=== PATIENT | male | born 1995 | race Caucasian/White ===

== ENCOUNTER 2024-03-07 11:06 | Outpatient (AMB) | payer MEDICARE, SELFPAY ==
--- NOTE | 2024-03-07 11:19 | A.OFFPC_ITS ---
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 Rehab Specialist Required: No Allergies amoxicillin Adverse Reaction (Intermediate, Verified 03/07/24 11:37) Hives Medication List - Last Reconciled 03/07/24 by Danyell Bueno CNP albuterol sulfate 90 mcg/actuation 2 puffs inhalation Q4-6H PRN Tobacco use date assessed: 03/07/24 Dental Screening Dental Screen Date: 03/07/24 Did you have a dental visit in the last 12 months?: No Did you have a dental problem in the last 6 months where you did not have access to dental care?: No Was dental information given to patient?: Yes HPI HPI Comments History of Present Illness Details New patient Prior PCP:?[facility] Last office visit/CPE: About 5 years Acute issue(s): Asthma -He is on albuterol inhaler, 2 puffs Q4- 6H PRN, however, he ran out of the inhaler about a month ago Anxiety -Reports h/o psychotropic medications, i ncluding clonidine, buspirone, and seroquel. He has has not been taking psychotropic medication for the past 2 years. He relates his anxiety symptoms to alcohol use disorder. He notes h/o alcohol rehab in 2019 and twice in 2021. He denies depression. He denies SI/HI Alcohol use disorder -He drinks 400ml of vodka and 1 beer on weekdays and doubled on Fridays and Saturdays; he has been drinking heavily, on and off, for the past 10 years. He is willing to be referred to addiction medicine He notes that is diet is generally unhealthy. He has not been exercising in the past 1 month. He has difficulty falling asleep; he sleeps an average of 4-5 hours nightly PMHx: Anxiety, alcohol use disorder, asthma, ADHD (treated at childhood to college) SurgHx: None FHx: Dad: Substance use disorder SocHx: Smokes 3 cigarettes daily and has been smoking for the past 11 years. History of vaping, quit 2 years ago. History of cocaine use. Smokes 1-2 hits of cannabis once every 3 months Last eye exam was several years ago Last tetanus vaccine was more than 10 years ago, and wants to be vaccinated He has not been vaccinated for the flu vaccine this season and requests the flu vaccine [facility] Medical History (Updated 03/07/24 @ 12:35 by Danyell Bueno CNP) Alcoholism Anxiety Eczema Arthritis Asthma Family History (Updated 03/07/24 @ 11:42 by Krysten Nance MA) Paternal Uncle Alcohol abuse Father Substance abuse Mother Asthma Social History Housing: Apartment Patient Tobacco Use Status: Current everyday Tobacco user Cigarettes Per Day: 3 e-Cigarette/Vaping Use: Never Used Second Hand Smoke Exposure: No service: No Current occupational status: employed Current occupation: [employer] Current occupational exposures/hazards: Yes Cognitive needs: No Hearing needs: No Vision needs: No Questionnaire PHQ-9 Over the last 2 weeks, how often have you been bothered by any of the following problems? 1. Little interest or pleasure in doing things: several days 2. Feeling down, depressed, or hopeless: several days 3. Trouble falling or staying asleep, or sleeping too much: more than half the days 4. Feeling tired or having little energy: more than half the days 5. Poor appetite or overeating: more than half the days 6. Feeling bad about yourself - or that you are a failure or have let yourself or your family down: not at all 7. Trouble concentrating on things, such as reading the newspaper or watching television: more than half the days 8. Moving or speaking so slowly that other people could have noticed. Or the opposite - being so fidgety or restless that you have been moving around a lot more than usual: several days 9. Thoughts that you would be better off or of hurting yourself in some way: not at all Total score: 11 Depression Screening Interpretation: Positive Depression Screening Done: Yes 57389 - PHQ-9 Billing: Yes Source: Developed by Drs. Abundio Jolly, Gianna Guzmán, Sy Ayala and colleagues, with an educational delaney from [employer]. Thrive Questionnaire Date Thrive assessed: 03/07/24 I am a: Patient What is your living situation today?: I have a steady place to live Within the past 12 months, did the food you bought not last and you didn't have the money to get more?: Never true Within the past 12 months, did you worry whether your food would run out before you got money to buy more?: Never true Do you have trouble paying for medicines?: No Do you have trouble getting transportation to medical appointments?: No Do you have trouble paying your heating and electricity bill?: No Do you have trouble taking care of your child, family member or friend?: No Do you have trouble with day-to-day activities such as bathing, preparing meals, shopping, managing finances, etc.?: Yes Are you currently unemployed and looking for a job?: No Are you interested in more education?: I choose not to answer this question Please select the resources that you would like help with: None Currently or been in a relationship where the following occur: No concerns reported THRIVE Score: 0 AUDIT C Alcohol Use Questionnaire (AUDIT-C) 1. How often do you have a drink containing alcohol?: 4 or more times a week 2. How many drinks containing alcohol do you have on a typical day when you are drinking?: 7 to 9 3. How often do you have six or more drinks on one occasion?: Daily or almost daily Total Score: 11 Score Reviewed/Action Taken: Yes TONY-7 AMB Questionnaire TONY-7 Date TONY - 7 assessed: 03/07/24 Feeling nervous, anxious, or on edge: 2 = More than half the days Not being able to stop or control worryin = More than half the days Worrying too much about different things: 2 = More than half the days Trouble relaxin = More than half the days Being so restless that it is hard to sit still: 2 = More than half the days Becoming easily annoyed or irritable: 0 = Not at all Feeling afraid as if something awful might happen: 2 = More than half the days Total TONY-7 score (0-4 normal; 5-9 mild; 10-14 moderate; 15-21 severe): 12 Source: Developed by Drs. Abundio Jolly, Gianna Guzmán, Sy Ayala and colleagues, with an educational delaney from [employer]. TONY-7 Assessment Billing TONY-7 Assessment Tool: TONY-7 Assessment 66871 ACT Questionnaire In the past 4 weeks, how much of the time did your asthma keep you from getting as much done at work, school or at home?: All of the time During the past 4 weeks, how often have you had shortness of breath?: More than once a day During the past 4 weeks, how often did your asthma symptoms wake you up at night or earlier than usual in the morning?: Not at all During the past 4 weeks, how often have you had to use your rescue inhaler or nebulizer medication?: Once a week or less How would you rate your asthma control during the past 4 weeks?: Somewhat controlled ACT Interpretation: Positive Score: 14 Review of Systems Const Details: Denies chills, Denies fatigue, Denies fever(s), Denies headache(s) and Denies weakness HEENT Denies change in vision, Denies dizziness, Denies headache(s), Denies hearing loss, Denies nasal congestion, Denies sinus pain, Denies sinus pressure and Denies sore throat Card Denies chest pain, Denies lightheadedness, Denies dyspnea and Denies other (palpitations) Resp Denies cough, Denies dyspnea and Denies wheezing GI Denies abdominal pain, Denies melena, Denies hematochezia, Denies change in bowel habits, Denies dyspepsia and Denies nausea Denies hematuria and Denies dysuria Musc Denies abnormal gait, Denies myalgias, Denies arthralgias, Denies numbness and Denies tingling Skin/Breast Denies rash, Denies unusual bruising and Denies wounds Neuro Denies abnormal gait, Denies dizziness, Denies headache(s), Denies memory loss, Denies numbness, Denies Sensory deficit (Neuro), Denies tingling and Denies weakness Psych Denies anxiety, Denies depression and Denies memory loss Endo Denies cold intolerance, Denies fatigue, Denies heat intolerance, Denies polydipsia and Denies polyuria Michael/Lymph Denies easy bleeding and Denies easy bruising Aller/Immun Denies wheezing Physical exam (Primary Care) Vital Signs: Last Vital Signs Temp 98.1 F 03/07/24 11:30 Pulse 96 03/07/24 11:30 Resp 16 03/07/24 11:30 BP 136/82 03/07/24 11:30 Pulse Ox 98 03/07/24 11:30 Oxygen Delivery Method Room Air 03/07/24 11:30 BMI result Body Mass Index 30.7 Tobacco/Smoking Status: Tobacco use Status Tobacco use date assessed 03/07/24 03/07/24 11:29 Patient Tobacco Use Status Current everyday Tobacco 03/07/24 11:29 e-Cigarette/Vaping Use Never Used 03/07/24 11:29 PHQ-9: PHQ-9 Score PHQ-9: Total score 11 03/07/24 12:39 Depression Screening Interpretation: Positive Thrive Assessment: Date of Thrive Assessment Date Thrive assessed 03/07/24 03/07/24 11:29 Currently or been in a relationship where the following occur: No concerns reported Const Other: General: no acute distress, well developed, alert and awake Nutritional Appearance: well nourished Orientation/consciousness: patient oriented x3 HENMT Head: Yes normocephalic and Yes atraumatic Ears: hearing grossly normal bilaterally and TM's normal bilaterally General nose exam: Normal external nose present and Normal nares present Mouth: Normal oral and palatal mucosa present and moist mucous membranes Teeth and gingiva: dentition normal Throat: Yes oropharynx normal Eyes Pupils: Equal, round and reactive pupils present and Pupil accommodation reflex normal EOM: EOMs intact bilaterally Neck Neck: Yes normal visual inspection, Yes no lymphadenopathy and Yes trachea midline Thyroid: Thyroid normal Carotids: no bruits Lymphatic: no lymphadenopathy noted Chest Chest palpation & inspection: normal inspection of the chest Resp Effort & Inspection: normal respiratory effort Auscultation: clear to auscultation bilaterally Cardio Rate: regular rate Rhythm: regular rhythm Heart sounds: S1 normal heart sound present, S2 normal heart sound present, no gallops, no murmurs and no rubs Bruits: no abdominal aortic bruits and no carotid bruits GI Palpation (GI): No Abdominal aortic bruit present, Soft to palpation, nontender, No hepatosplenomegaly present and No Rebound tenderness present Auscultation: normal bowel sounds General: Yes no CVA tenderness Back/Spine/Pelvis Back: no CVA tenderness Cervical Spine: cervical ROM normal and No Cervical spine tenderness Thoracic/Lumbar Spine: thoraco-lumbar ROM normal, No pain with thoraco-lumbar ROM, No thoracic spinal tenderness and No lumbar spinal tenderness Skin General: warm and dry. Normal skin color. Normal skin turgor Lesions: no lesions Rashes: no rashes Trauma: no lacerations or abrasions Wounds: no wounds Nails: normal Neuro General: patient oriented x3, gait normal and CN's II-XI intact bilaterally Cranial nerves: Yes Equal, round and reactive pupils present Cognition (Neuro): normal cognition Gait exam (Neuro): Normal gait present Motor exam (neuro): 5/5 motor strength present throughout Sensory Exam: No Sensory deficit (Neuro) Deep tendon reflexes (DTR's): Right patellar reflex intensity grade: 2+ and Left patellar reflex intensity grade: 2+ Extrem General: Yes normal to inspection, No edema and No calf tenderness Psych Appearance: grossly normal Affect: normal affect Attitude: cooperative Thought process: Normal thought process present Office Procedures Flu Questionnaire Does the patient have a severe egg allergy?: No Does the patient have severe life threatening allergies?: No Does the patient have a fever or illness today?: No Has the patient ever had Guillain-[place] Syndrome?: No Has the patient ever had any past reaction to a flu shot?: No Immunizations Fluarix Triv 0413-1380 (PF) 45 mcg (15 mcg x 3)/0.5 mL IM syringe Performing Provider: Danyell Bueno CNP Performing Location: [facility] Administered by: Luna Khan RN on 03/07/24 12:40 Dose Route Admin Location Dispensed Lot Number Expiration Date [facility] Order Detailer 0.5 mL IM Left Deltoid 0.5 mL [id number] 11/19/24 11188-663-31 [employer]/LBRINE VIS Given Date VIS Provided VIS Publication Date 03/07/24 Single Vaccine 20 Eligibility Eligibility Date Funding Source Not [facility] Eligible 03/07/24 Private Administration Comments: Patient received both the flu shot and the TDaP vaccine today in the left deltoid, flu shot below the TDaP. Boostrix Tdap 2.5 Lf unit-8 mcg-5 Lf/0.5 mL intramuscular syringe Performing Provider: Danyell Bueno CNP Performing Location: [facility] Administered by: Luna Khan RN on 03/07/24 12:40 Dose Route Admin Location Dispensed Lot Number Expiration Date [place] Order Detailer 0.5 mL IM Left Deltoid 0.5 mL [id number] 02/17/25 [id number] [employer]/LBRINE VIS Given Date VIS Provided VIS Publication Date 03/07/24 Single Vaccine 20 Eligibility Eligibility Date Funding Source Not [facility] Eligible 03/07/24 Private Administration Comments: Patient received both the flu shot and the TDaP vaccine today in the left deltoid, flu shot below the TDaP. Coding Level of Care Code New Pt Level 4 (90949) New Pt Prev Care 18-39yr(30235 Diagnoses Normal physical examination, routine Z00.00 Asthma J45.909 Alcohol use disorder F10.90 Anxiety F41.9 Sleep disturbance G47.9 Smoking 1/2 pack a day or less F17.210 Eye exam, routine Z01.00 Vaccine for tetanus toxoid Z23 Flu vaccine need Z23 Laboratory tests ordered as part of a complete physical exam (CPE) Z00.00 Additional Codes TONY-7 Assessment Billing - TONY-7 Assessment Tool: TONY-7 Assessment 24959 ([id number]) Asthma Control Questionnaire - ACT Interpretation: Positive ([id number]) Assessment & Plan Assessment & Plan (1) Normal physical examination, routine: Code(s): Z00.00 - Encounter for general adult medical examination without abnormal findings Category: Medical Plan: No significant functional limitation noted Healthy diet and routine exercise encouraged Encouraged to schedule an appointment with a dentist for routine dental care Advised to get fasting lab work done and follow-up in a month for asthma and labs review Return sooner with symptoms or concerns Verbalized understanding and agreed with the treatment plan (2) Asthma: Code(s): J45.909 - Unspecified asthma, uncomplicated Category: Medical Plan: ACT score is 14, poorly control asthma He ran out of his albuterol inhaler about a month ago Will refill albuterol inhaler. Advised to use as prescribed Smoking cessation encouraged Follow-up in 1 month or sooner with worsening or new symptoms Verbalized understanding and agreed with the treatment plan (3) Alcohol use disorder: Code(s): F10.90 - Alcohol use, unspecified, uncomplicated Category: Medical Plan: He drinks significant amount of alcohol daily and has been drinking heavily, on and off, for the past 10 years. He has been in rehab for alcohol intake 3 times Instructed on the health risks and complications of excessive alcohol intake and encouraged to cut back on drinking Referred to [facility] addiction medicine Verbalized understanding and agreed with the plan (4) Anxiety: Code(s): F41.9 - Anxiety disorder, unspecified Category: Medical Plan: Reports history of anxiety which he attributes to alcohol use disorder. Sleep is also an issue; he has trouble maintaining sleep. He was on psychotropic medications until 2 years ago. He continues to drink significant amount of alcohol. He has not been exercising for the past 1 month PHQ-9 and TONY-7 scores revealed moderate depression and anxiety respectively Will not start psychotropic medications at this time due to adverse reactions with significant alcohol consumption Healthy diet and routine exercise encouraged Referred to [facility] addiction medicine Follow-up with worsening or new symptoms Verbalized understanding and agreed with the treatment plan (5) Sleep disturbance: Code(s): G47.9 - Sleep disorder, unspecified Category: Medical Plan: Plan as above (6) Smoking 1/2 pack a day or less: Code(s): F17.210 - Nicotine dependence, cigarettes, uncomplicated Category: Social Hx Plan: He smokes 3 cigarettes daily and has been smoking for the past 11 years Instructed on the health risks and complications of cigarette smoking and smok ing cessation encouraged Declines medication treatment at this time He may inform his PCP as needed for treatment Verbalized understanding and agreed with the plan (7) Eye exam, routine: Code(s): Z01.00 - Encounter for examination of eyes and vision without abnormal findings Category: Medical Plan: His last eye exam was several years ago Referred to Ophthalmology for routine eye exam (8) Vaccine for tetanus toxoid: Code(s): Z23 - Encounter for immunization Category: Medical Plan: His last tetanus vaccine was over 10 years ago Tdap administered today by our nurse (9) Flu vaccine need: Code(s): Z23 - Encounter for immunization Category: Medical Plan: He has not been vaccinated for the flu this season Flu vaccine administered today by our nurse (10) Laboratory tests ordered as part of a complete physical exam (CPE): Code(s): Z00.00 - Encounter for general adult medical examination without abnormal findings Category: Medical Plan: Fasting labs ordered as part of a complete physical exam. Advised to fast for at least 10 hours before getting labs drawn. May drink water Verbalized understanding and agreed with treatment plan. Orders: Orders Comprehensive Chancellor. Panel Fast Today Z00.00 - Encounter for general adult medical examination without abnormal findings Lipid Panel Today Z00.00 - Encounter for general adult medical examination without abnormal findings Influenza [id number] Immunization Today Z23 - Encounter for immunization Complete Blood Count Auto Diff Today Z00.00 - Encounter for general adult medical examination without abnormal findings TSH reflex Free T4 Today Z00.00 - Encounter for general adult medical examination without abnormal findings UA CC w/rflx Micro + Cult Today Z00.00 - Encounter for general adult medical examination without abnormal findings TDaP Immunization Today Z23 - Encounter for immunization Referrals Addiction Medicine Referral F10.90 - Alcohol use, unspecified, uncomplicated Ophthalmology Referral Z01.00 - Encounter for examination of eyes and vision without abnormal findings Medications: New albuterol sulfate 90 mcg/actuation 2 puffs inhalation Q4-6H PRN 8.5 grams 3RF s hortness of breath or wheezing
[2024-03-07 11:30] VITALS: BP 136/82; PULSE 96; RESP 16; TEMP 36.7; O2SAT 98; BMI 30.7
== END 2024-03-07 12:35 | disposition home or self-care (01) ==
PROVIDERS: Visit Provider Nurse Practitioner Family
DX: Z00.00 Encounter for general adult medical examination without abnormal findings (principal); J45.909 Unspecified asthma, uncomplicated; F10.90 Alcohol use, unspecified, uncomplicated; F41.9 Anxiety disorder, unspecified; G47.9 Sleep disorder, unspecified; F17.210 Nicotine dependence, cigarettes, uncomplicated

== ENCOUNTER → 2024-03-07 11:06 | Outpatient (BNVA) | payer OTHER, SELFPAY | PROVIDERS: Visit Provider Nurse Practitioner Family | DX: Z00.00 Encounter for general adult medical examination without abnormal findings (principal); J45.909 Unspecified asthma, uncomplicated; F10.90 Alcohol use, unspecified, uncomplicated; F41.9 Anxiety disorder, unspecified; G47.9 Sleep disorder, unspecified; F17.210 Nicotine dependence, cigarettes, uncomplicated; Z23 Encounter for immunization | CPT/HCPCS: 90471; 90472; 90656; 90715; 96127; 96160; 99202; 99385 ==

== ENCOUNTER 2024-04-03 15:32 | Outpatient (REF) | payer OTHER, SELFPAY ==
[2024-04-03 18:02] LABS: MANUAL DIFF FLAG NO
[2024-04-03 18:08] LABS: Basophils Absolute Auto 0.1 X10*3/uL (0.0-0.2); Basophils Percent Auto 1.2 % (0-2); Eosinophils Absolute Auto 0.3 X10*3/uL (0.0-0.4); Eosinophils Percent Auto 5.6 % (0-4); Hematocrit 41.7 % (42.0-52.0); Hemoglobin 14.6 g/dl (14.0-18.0); Imm Gran Abs Auto 0.04 X10*3/uL (0.00-0.03); Imm Gran Pct Auto 0.7 % (0.0-0.4); Lymphocytes Absolute Auto 1.6 X10*3/uL (1.2-4.9); Lymphocytes Percent Auto 28.5 % (20-40); Mean Corpuscular Hemoglobin 33.2 pg (27.0-33.0); Mean Corpuscular Volume 94.8 fL (80.0-98.0); Mean Platelet Volume 9.8 fL (9.4-12.4); Monocytes Absolute Auto 0.4 X10*3/uL (0.1-1.2); Monocytes Percent Auto 6.1 % (2-11); Neutrophils Absolute Auto 3.3 x10*3/uL (2.0-8.3); Neutrophils Percent Auto 57.9 % (45-73); Platelet Count 257 X10*3/uL (160-400); Red Cell Distribution Width 11.4 % (11.0-16.0); White Blood Count 5.7 X10*3/uL (4.8-10.8)
[2024-04-03 18:11] LABS: Appearance Urine Clear; Color Urine Yellow; Glucose Urine UA Negative (Negative); Leukocyte Esterase Urine Negative (Negative); Nitrite Urine Negative (Negative); Urine Blood Negative (Negative); Urine Ketones Negative (Negative); Urine Protein Trace mg/dL (Neg-Trace)
[2024-04-03 18:24] LABS: Alanine Aminotransferase 361 U/L (0-40); Albumin Level 4.6 g/dL (3.5-5.0); Alkaline Phosphatase 90 U/L (39-117); Anion Gap 15 (12-20); Aspartate Amino Transferase 145 U/L (5-37); Bilirubin Total 0.9 mg/dL (0.0-1.0); Blood Urea Nitrogen 9 mg/dL (9-16); Calcium 10.2 mg/dL (8.4-10.2); Carbon Dioxide 30 mmol/L (22-29); Chloride 94 mmol/L (96-108); Cholesterol 314 mg/dL (<200); Estimated Glomerular Filt Rate > 60; Glucose Fasting 99 mg/dL (60-99); HDL Cholesterol 35 mg/dL (>40); Potassium 3.8 mmol/L (3.3-5.1); Sodium 135 mmol/L (135-145); Total Protein 8.2 g/dL (6.5-8.0); Triglycerides 602 mg/dL (<150)
[2024-04-03 19:12] LABS: Free T4 (Free Thyroxine) 1.06 ng/dL (0.71-1.85)
[2024-04-06 14:28] LABS: LDL Cholesterol Direct 197 mg/dL (<100)
== END 2024-04-03 15:33 | disposition home or self-care (01) ==
LOC: HO.WFDLDS 15:32
PROVIDERS: Visit Provider Nurse Practitioner Family
DX: Z00.00 Encounter for general adult medical examination without abnormal findings (principal); E78.5 Hyperlipidemia, unspecified
CPT/HCPCS: 36415; 80053; 80061; 81003; 83721; 84439; 84443; 85025

== ENCOUNTER 2024-05-04 15:36 | Outpatient (AMB) | payer OTHER, SELFPAY ==
--- NOTE | 2024-05-04 14:14 | MHC.PC.OV ---
Intake Visit Reasons: REVIEW LABS Intake Note: patient here for telehealth for lab review [employer] Supervisor Required: No Allergies amoxicillin Adverse Reaction (Intermediate, Verified 05/04/24 16:19) Hives Medication List - Last Reconciled 05/04/24 by Danyell Bueno CNP albuterol sulfate 90 mcg/actuation 2 puffs inhalation Q4-6H PRN Tobacco use date assessed: 05/04/24 Dental Screening Dental Screen Date: 03/07/24 HPI HPI Comments History of Present Illness Details 28-year-old male presents for telehealth visit for review of recent lab results. He has been consuming significant amount of meat, cheese, and processed foods. He has not been exercising recently. He offers no complaints and denies acute symptoms at this time. [facility] Medical History (Updated 05/04/24 @ 14:57 by Danyell Bueno CNP) Alcoholism Anxiety Eczema Arthritis Asthma Family History (Updated 03/07/24 @ 11:42 by Krysten Nance MA) Paternal Uncle Alcohol abuse Father Substance abuse Mother Asthma Social History Housing: Apartment Patient Tobacco Use Status: Current everyday Tobacco user Cigarettes Per Day: 3 e-Cigarette/Vaping Use: Never Used Second Hand Smoke Exposure: No service: No Current occupational status: employed Current occupation: [employer] Current occupational exposures/hazards: Yes Cognitive needs: No Hearing needs: No Vision needs: No Questionnaire Thrive Questionnaire Date Thrive assessed: 03/07/24 TONY-7 AMB Questionnaire TONY-7 Date TONY - 7 assessed: 03/07/24 Source: Developed by Drs. Abundio Jolly, Gianna Guzmán, Sy Ayala and colleagues, with an educational delaney from [employer]. Review of Systems Const Details: Const Denies chills, Denies fatigue, Denies fever(s), Denies headache(s) and Denies weakness ENT Denies dizziness and Denies headache(s) Card Denies chest pain, Denies lightheadedness, Denies dyspnea and Denies other (Palpitations) Resp Denies cough, Denies dyspnea, Denies wheezing and Denies other ( shortness of breath) GI Denies abdominal pain, Denies melena, Denies hematochezia, Denies change in bowel habits, Denies dyspepsia and Denies nausea Denies hematuria and Denies dysuria Musc Denies abnormal gait, Denies myalgias, Denies arthralgias, Denies numbness and Denies tingling Skin/Breast Denies rash, Denies unusual bruising and Denies wounds Neuro Denies abnormal gait, Denies dizziness, Denies headache(s), Denies memory loss, Denies numbness, Denies Sensory deficit (Neuro), Denies tingling and Denies weakness Psych Denies anxiety, Denies depression, Denies memory loss Endo Denies cold intolerance, Denies fatigue, Denies heat intolerance, Denies polydipsia and Denies polyuria Aller/Immun Denies wheezing Physical exam (Primary Care) Tobacco/Smoking Status: Tobacco use Status Tobacco use date assessed 05/04/24 05/04/24 14:17 Patient Tobacco Use Status Current everyday Tobacco 05/04/24 14:17 e-Cigarette/Vaping Use Never Used 05/04/24 14:17 Thrive Assessment: Date of Thrive Assessment Date Thrive assessed 03/07/24 05/04/24 14:17 Const Other: Telehealth visit. No physical exam. Telehealth Telehealth Telehealth Platform: Telephone Location of provider rendering services: practice address Location of patient: address on file Patient Identification confirmed using: Name, : Yes Telehealth method: voice only Patient verbally consented to treatment: Yes Patient verbally consented to billing insurance company: Yes Patient informed of any privacy concerns related to visit: Yes Coding Level of Care Code Tele Est Pt Level 3 (39812) Diagnoses Hyperlipidemia E78.5 Transaminitis R74.01 Subclinical hypothyroidism E03.8 Time Spent (min) 20 Assessment & Plan Assessment & Plan (1) Hyperlipidemia: Code(s): E78.5 - Hyperlipidemia, unspecified Category: Medical Plan: Recent triglycerides, total cholesterol, and LDL direct levels elevated, 602, 314, and 197 respectively; HDL level is low, 35. May be related to diet or alcohol consumption. Advised to limit foods high in saturated fat and avoid foods high in trans fat. Routine exercise encouraged. Instructed on impact of heavy alcohol consumption on his weight and encouraged to limit alcohol intake to no more than 1 drink daily. He was referred to [facility] addiction medicine for alcohol use disorder and awaiting to be contacted for an appointment. Encouraged to get his voicemail set up on his cell phone so they will be able to leave a message for his appointment. Advised to fast for 10-12 hours, may drink water, and get repeat lipid panel blood work done 2-3 days before his next visit. Follow-up for telehealth visit in 2 months for labs review or sooner with symptoms or concerns. Verbalized understanding and agreed with treatment plan. (2) Transaminitis: Code(s): R74.01 - Elevation of levels of liver transaminase levels Category: Medical Plan: Recent AST and ALT levels are elevated, 145 and 361 respectively. Diet or alcohol may be the cause. Plan as above. (3) Subclinical hypothyroidism: Code(s): E03.8 - Other specified hypothyroidism Category: Medical Plan: Recent TSH level is slightly elevated, 4.40. Free T4 is normal. No acute symptoms. Will recheck TSH/T4 levels and make changes as needed. Verbalized understanding and agreed with treatment plan. Orders: Orders Lipid Panel 2 Months E78.5 - Hyperlipidemia, unspecified TSH reflex Free T4 Today E03.8 - Other specified hypothyroidism Liver Panel 2 Months R74.01 - Elevation of levels of liver transaminase levels
== END 2024-05-04 16:21 | disposition home or self-care (01) ==
LOC: HO.HMCFM 15:36
PROVIDERS: PCP Nurse Practitioner Family; Visit Provider Nurse Practitioner Family
DX: E78.5 Hyperlipidemia, unspecified (principal); R74.01 Elevation of levels of liver transaminase levels; E03.8 Other specified hypothyroidism

== ENCOUNTER → 2024-05-04 15:36 | Outpatient (BNVA) | payer OTHER, SELFPAY | PROVIDERS: PCP Nurse Practitioner Family; Visit Provider Nurse Practitioner Family | DX: E78.5 Hyperlipidemia, unspecified (principal); E03.8 Other specified hypothyroidism; R74.01 Elevation of levels of liver transaminase levels ==

== ENCOUNTER 2025-03-26 10:10 | Outpatient (AMB) | payer OTHER, SELFPAY ==
--- NOTE | 2025-03-26 10:19 | A.OFFPC_ITS ---
Vital Signs 03/26/25 10:26 03/26/25 14:37 03/26/25 14:37 Height 5 ft 6 in Weight 196 lb 4 oz BMI 31.7 BP 151/85 H 130/80 Blood Pressure Location Rt brachial Lt brachial Position Sitting Sitting Respiration 16 Pulse 106 H 104 H Pulse Source Pulse Oximeter Auscultation Temp 98.2 F Temp Source Oral Pulse Oximetry (%) 97 Oxygen Delivery Method Room Air Intake Visit Reasons: Annual Physical Intake Note: patient here for CPE [place] Attacher Required: No Allergies amoxicillin Adverse Reaction (Intermediate, Verified 03/26/25 10:33) Hives Medication List - Last Reconciled 03/26/25 by Danyell Bueno, EDWIGE albuterol sulfate 90 mcg/actuation 2 puffs inhalation Q4-6H PRN Tobacco use date assessed: 03/26/25 Dental Screening Dental Screen Date: 03/26/25 Did you have a dental visit in the last 12 months?: Yes Did you have a dental problem in the last 6 months where you did not have access to dental care?: No Was dental information given to patient?: Patient has dentist HPI HPI Comments History of Present Illness Details 29-year-old male presents for an extende d physical exam. He notes that he experiences anxiety symptoms daily, but his symptoms are are generally well controlled. Acute issue(s) - None Past Medical History - Anxiety, alcohol use disorder, asthma, ADHD (treated at childhood to college) Social History - Smokes 4-5 cigarettes daily, have been smoking on/off for the past 13 year. History of vaping. Drinks 6 shots of vodka and 1 beer daily on weekdays, drinking doubles on weekends, h/o rehab for alcohol x 3, four months each, last rehab was 3 years ago. Denies recreational drug use - Has been making healthy dietary choice s. Active but does not exercise. Generally sleep well Health maintenance - Last eye exam was several years ago. R eferred to Ophthalmology for routine eye exam - Last dental visit was 2 months ago - Last Tdap was in 03/07/2024 - He was vaccinated for influenza 2 week s ago Specialists - None PFSH Medical History Alcoholism Anxiety Eczema Arthritis Asthma Family History Paternal Uncle Alcohol abuse Father Substance abuse Mother Asthma Social History Housing: Apartment Patient Tobacco Use Status: Current everyday Tobacco user Cigarettes Per Day: 3 e-Cigarette/Vaping Use: Never Used Second Hand Smoke Exposure: No service: No Current occupational status: employed Current occupation: [employer] Current occupational exposures/hazards: Yes Cognitive needs: No Hearing needs: No Vision needs: No Questionnaire PHQ-9 Over the last 2 weeks, how often have you been bothered by any of the following problems? 1. Little interest or pleasure in doing things: several days 2. Feeling down, depressed, or hopeless: several days 3. Trouble falling or staying asleep, or sleeping too much: several days 4. Feeling tired or having little energy: several days 5. Poor appetite or overeating: more than half the days 6. Feeling bad about yourself - or that you are a failure or have let yourself or your family down: not at all 7. Trouble concentrating on things, such as reading the newspaper or watching television: more than half the days 8. Moving or speaking so slowly that other people could have noticed. Or the opposite - being so fidgety or restless that you have been moving around a lot more than usual: not at all 9. Thoughts that you would be better off or of hurting yourself in some way: not at all Total score: 8 Depression Screening Interpretation: Positive Depression Screening Done: Yes 73867 - PHQ-9 Billing: Yes Source: Developed by Drs. Abundio Jolly, Gianna Guzmán, Sy Ayala and colleagues, with an educational delaney from [employer]. Thrive Questionnaire Date Thrive assessed: 03/21/25 I am a: Patient What is your living situation today?: I have a steady place to live Within the past 12 months, did the food you bought not last and you didn't have the money to get more?: Never true Within the past 12 months, did you worry whether your food would run out before you got money to buy more?: Never true Do you have trouble paying for medicines?: No Do you have trouble getting transportation to medical appointments?: No Do you have trouble paying your heating and electricity bill?: No Do you have trouble taking care of your child, family member or friend?: No Do you have trouble with day-to-day activities such as bathing, preparing meals, shopping, managing finances, etc.?: No Are you currently unemployed and looking for a job?: No Are you interested in more education?: I choose not to answer this question Please select the resources that you would like help with: None Currently or been in a relationship where the following occur: No concerns reported THRIVE Score: 0 AUDIT C Alcohol Use Questionnaire (AUDIT-C) 1. How often do you have a drink containing alcohol?: 4 or more times a week 2. How many drinks containing alcohol do you have on a typical day when you are drinking?: 7 to 9 3. How often do you have six or more drinks on one occasion?: Daily or almost daily Total Score: 11 Score Reviewed/Action Taken: Yes TONY-7 AMB Questionnaire TONY-7 Date TONY - 7 assessed: 03/26/25 Feeling nervous, anxious, or on edge: 1 = Several days Not being able to stop or control worryin = Several days Worrying too much about different things: 2 = More than half the days Trouble relaxin = More than half the days Being so restless that it is hard to sit still: 2 = More than half the days Becoming easily annoyed or irritable: 1 = Several days Feeling afraid as if something awful might happen: 0 = Not at all Total TONY-7 score (0-4 normal; 5-9 mild; 10-14 moderate; 15-21 severe): 9 Source: Developed by Drs. Abundio Jolly, Gianna Guzmán, Sy Ayala and colleagues, with an educational delaney from [employer]. TONY-7 Assessment Billing TONY-7 Assessment Tool: TONY-7 Assessment 62003 ACT Questionnaire In the past 4 weeks, how much of the time did your asthma keep you from getting as much done at work, school or at home?: None of the time During the past 4 weeks, how often have you had shortness of breath?: 1-2 times a week During the past 4 weeks, how often did your asthma symptoms wake you up at night or earlier than usual in the morning?: Once or twice per week During the past 4 weeks, how often have you had to use your rescue inhaler or nebulizer medication?: Once a week or less How would you rate your asthma control during the past 4 weeks?: Somewhat controlled ACT Interpretation: Negative Score: 20 Review of Systems Const Details: Denies chills, Denies fatigue, Denies fever(s), Denies headache(s) and Denies weakness HEENT Denies change in vision, Denies dizziness, Denies headache(s), Denies hearing loss, Denies nasal congestion, Denies sinus pain, Denies sinus pressure and Denies sore throat Card Denies chest pain, Denies lightheadedness, Denies dyspnea and Denies other (palpitations) Resp Denies cough, Denies dyspnea and Denies wheezing GI Denies abdominal pain, Denies melena, Denies hematochezia, Denies change in bowel habits, Denies dyspepsia and Denies nausea Denies hematuria and Denies dysuria Musc Denies abnormal gait, Denies myalgias, Denies arthralgias, Denies numbness and Denies tingling Skin/Breast Denies rash, Denies unusual bruising and Denies wounds Neuro Denies abnormal gait, Denies dizziness, Denies headache(s), Denies memory loss, Denies numbness, Denies Sensory deficit (Neuro), Denies tingling and Denies weakness Psych Denies anxiety, Denies depression and Denies memory loss Endo Denies cold intolerance, Denies fatigue, Denies heat intolerance, Denies polydipsia and Denies polyuria Michael/Lymph Denies easy bleeding and Denies easy bruising Aller/Immun Denies wheezing Physical exam (Primary Care) Vital Signs: Last Vital Signs Temp 98.2 F 03/26/25 10:26 Pulse 106 H 03/26/25 10:26 Resp 16 03/26/25 10:26 BP 151/85 H 03/26/25 10:26 Pulse Ox 97 03/26/25 10:26 Oxygen Delivery Method Room Air 03/26/25 10:26 BMI result Body Mass Index 31.7 Tobacco/Smoking Status: Tobacco use Status Tobacco use date assessed 03/26/25 03/26/25 10:34 Patient Tobacco Use Status Current everyday Tobacco 03/26/25 10:22 e-Cigarette/Vaping Use Never Used 03/26/25 10:22 PHQ-9: PHQ-9 Score PHQ-9: Total score 8 03/26/25 10:34 Depression Screening Interpretation: Positive Thrive Assessment: Date of Thrive Assessment Date Thrive assessed 03/21/25 03/26/25 10:22 Currently or been in a relationship where the following occur: No concerns reported Const Other: General: no acute distress, well developed, alert and awake Nutritional Appearance: well nourished Orientation/consciousness: patient oriented x3 HENMT Head: Yes normocephalic and Yes atraumatic Ears: hearing grossly normal bilaterally and TM's normal bilaterally General nose exam: Normal external nose present and Normal nares present Mouth: Normal oral and palatal mucosa present and moist mucous membranes Teeth and gingiva: dentition normal Throat: Yes oropharynx normal Eyes Pupils: Equal, round and reactive pupils present and Pupil accommodation reflex normal EOM: EOMs intact bilaterally Neck Neck: Yes normal visual inspection, Yes no lymphadenopathy and Yes trachea midline Thyroid: Thyroid normal Carotids: no bruits Lymphatic: no lymphadenopathy noted Chest Chest palpation & inspection: normal inspection of the chest Resp Effort & Inspection: normal respiratory effort Auscultation: clear to auscultation bilaterally Cardio Rate: regular rate Rhythm: regular rhythm Heart sounds: S1 normal heart sound present, S2 normal heart sound present, no gallops, no murmurs and no rubs Bruits: no abdominal aortic bruits and no carotid bruits GI Palpation (GI): No Abdominal aortic bruit present, Soft to palpation, nontender, No hepatosplenomegaly present and No Rebound tenderness present Auscultation: normal bowel sounds General: Yes no CVA tenderness Back/Spine/Pelvis Back: no CVA tenderness Cervical Spine: cervical ROM normal and No Cervical spine tenderness Thoracic/Lumbar Spine: thoraco-lumbar ROM normal, No pain with thoraco-lumbar ROM, No thoracic spinal tenderness and No lumbar spinal tenderness Skin General: warm and dry. Normal skin color. Normal skin turgor Lesions: no lesions Rashes: no rashes Trauma: no lacerations or abrasions Wounds: no wounds Nails: normal Neuro General: patient oriented x3, gait normal and CN's II-XI intact bilaterally Cranial nerves: Yes Equal, round and reactive pupils present Cognition (Neuro): normal cognition Gait exam (Neuro): Normal gait present Motor exam (neuro): 5/5 motor strength present throughout Sensory Exam: No Sensory deficit (Neuro) Deep tendon reflexes (DTR's): Right patellar reflex intensity grade: 2+ and Left patellar reflex intensity grade: 2+ Extrem General: Yes normal to inspection, No edema and No calf tenderness Psych Appearance: grossly normal Affect: normal affect Attitude: cooperative Thought process: Normal thought process present Coding Level of Care Code Est Pt Level 3 (74112) Est Pt Prev Care 18-39y(42422) Diagnoses Normal physical examination, routine Z00.00 Alcohol use disorder F10.90 Anxiety F41.9 Eye exam, routine Z01.00 Smoking 1/2 pack a day or less F17.210 Laboratory tests ordered as part of a complete physical exam (CPE) Z00.00 Additional Codes Asthma Control Questionnaire - ACT Interpretation: Negative ([id number]) TONY-7 Assessment Billing - TONY-7 Assessment Tool: TONY-7 Assessment 90882 ([id number]) PHQ-9 - 10381 - PHQ-9 Billing: Yes ([id number]) Assessment & Plan Assessment & Plan (1) Normal physical examination, routine: Code(s): Z00.00 - Encounter for general adult medical examination without abnormal findings Category: Medical Plan: No significant functional limitation noted. Healthy diet and routine exercise encouraged. Perform lab work and follow-up for telehealth visit for labs review in 2-3 weeks. Return sooner with symptoms or concerns. Verbalized understanding and agreed with treatment plan. (2) Alcohol use disorder: Code(s): F10.90 - Alcohol use, unspecified, uncomplicated Category: Medical Plan: He drinks 6 shots of vodka and 1 beer daily on weekdays. His drinking doubles on weekends. History of rehab for alcohol x 3, four months each, last rehab was 3 years ago. Instructed on the health risks and complications of excessive alcohol intake and encouraged cut down or avoid drinking - no more than 2 drinks per day or 5 weekly. He was referred to [facility] addiction medicine a year ago but did not follow-up. Declines referral to [facility] addiction at this time. Advised to follow-up as needed. Verbalized understanding and agreed with the plan. (3) Anxiety: Code(s): F41.9 - Anxiety disorder, unspecified Category: Medical Plan: He experiences anxiety symptoms daily, but his symptoms are are generally well controlled. Excessive alcohol intake may be contributory. Advised to cut down or avoid alcohol intake. Routine exercise encouraged. Follow-up as needed. Verbalized understanding and agreed with the plan. (4) Eye exam, routine: Code(s): Z01.00 - Encounter for examination of eyes and vision without abnormal findings Category: Medical Plan: Last eye exam was several years ago. Referred to Ophthalmology for routine eye exam. (5) Smoking 1/2 pack a day or less: Code(s): F17.210 - Nicotine dependence, cigarettes, uncomplicated Category: Social Hx Plan: He smokes 4-5 cigarettes daily, have been smoking on/off for the past 13 year. Instructed on the health risks and complications of cigarette smoking cessation encouraged. Declines nicotine treatment for smoking cessation. Advised to follow-up as needed. Verbalized understanding and agreed with the plan. (6) Laboratory tests ordered as part of a complete physical exam (CPE): Code(s): Z00.00 - Encounter for general adult medical examination without abnormal findings Category: Medical Plan: Fasting labs ordered as part of a complete physical exam. Advised to fast for at least 10 hours before getting labs drawn. May drink water Verbalized understanding and agreed with treatment plan. Orders: Orders Complete Blood Count Auto Diff Today Z00.00 - Encounter for general adult medical examination without abnormal findings Microalbumin, Random (w Creat) Today Z00.00 - Encounter for general adult medical examination without abnormal findings UA CC w/rflx Micro + Cult Today Z00.00 - Encounter for general adult medical examination without abnormal findings Vitamin D 25-OH Total Today Z00.00 - Encounter for general adult medical examination without abnormal findings Comprehensive Albert. Panel Fast Today Z00.00 - Encounter for general adult medical examination without abnormal findings Lipid Panel Today Z00.00 - Encounter for general adult medical examination without abnormal findings TSH reflex Free T4 Today Z00.00 - Encounter for general adult medical examination without abnormal findings Referrals Ophthalmology Referral Z01.00 - Encounter for examination of eyes and vision without abnormal findings
[2025-03-26 10:26] VITALS: BP 151/85; PULSE 106; RESP 16; TEMP 36.8; O2SAT 97; BMI 31.7
--- OUTSIDE RECORDS SUMMARY | 2025-03-26 11:54 | XMS_ITS | Clinical Summary ---
Author Organization [facility] Address [address] [place] [id number] Care Team Providers Care Quantitative Research Analyst Name Role Phone Unavailable Primary Care Provider Unavailabl e Allergies Active Allergy Reactions Criticality Noted Date Comments Amoxicillin Unknown/Patient and Family Unable to Define Medium 12/29/2020 Medications No known medications Social History Tobacco Use Types Packs/Day Years Used Date Smoking Tobacco: Never Smokeless Tobacco: Never Sex and Gender Information Value Date Recorded Sex Assigned at Not on file Legal Sex Male 6:15 PM EST Gender Identity Not on file Sexual Orientation Not on file Last Filed Vital Signs Vital Sign Reading Time Taken Comments Blood Pressure 110/73 12/29/2020 1:29 PM EDT Pulse 107 12/29/2020 1:29 PM EDT Temperature 36.6 C (97.8 F) 12/29/2020 1:29 PM EDT Respiratory Rate - - Oxygen Saturation 97% 12/29/2020 1:29 PM EDT Inhaled Oxygen Concentration - - Weight 68 kg (150 lb) 12/29/2020 1:29 PM EDT Height 167.6 cm (5' 6 ) 12/29/2020 1:29 PM EDT Body Mass Index 24.21 12/29/2020 1:29 PM EDT Plan of Treatment Health Maintenance Due Date Last Done Comments Hepatitis C Virus Screening 1996 HIV Screening 2009 DTaP/Tdap/Td Vaccines (1 - Tdap) 11/23/2015 Hepatitis B Vaccines (1 of 3 - 19+ 3-dose series) 11/23/2015 Influenza Vaccine 12/21/2024 COVID-19 Vaccine ( - 2024-2 6 season) 2025 10/21/2020, 09/23/2020 HPV Vaccines (No Doses Required) Completed Pneumococcal Vaccine: Pediatric (0-5 Years) and At-Risk Patients (6 to 49 Years) Aged Out No longer eligible b ased on patient's age to complete this topic Insurance [facility]
[2025-03-26 14:37] VITALS: BP 130/80; PULSE 104
== END 2025-03-26 11:00 | disposition home or self-care (01) ==
LOC: HO.HMCFM 10:10
PROVIDERS: PCP Nurse Practitioner Family; Visit Provider Nurse Practitioner Family
DX: Z00.00 Encounter for general adult medical examination without abnormal findings (principal); F41.9 Anxiety disorder, unspecified; F10.90 Alcohol use, unspecified, uncomplicated; F17.210 Nicotine dependence, cigarettes, uncomplicated

== ENCOUNTER → 2025-03-26 10:10 | Outpatient (BNVA) | payer OTHER, SELFPAY | PROVIDERS: PCP Nurse Practitioner Family; Visit Provider Nurse Practitioner Family | DX: Z00.00 Encounter for general adult medical examination without abnormal findings (principal); F10.90 Alcohol use, unspecified, uncomplicated; F41.9 Anxiety disorder, unspecified; F17.210 Nicotine dependence, cigarettes, uncomplicated | CPT/HCPCS: 96127; 96160 ==